=== PATIENT | female | born 1970 | race Asian ===

== ENCOUNTER 2023-02-04 10:13 | Inpatient (IN) | payer BC ==
[~2023-02-04] VITALS: Ht 160 cm; Wt 65.8 kg
[2023-02-04 10:28] VITALS: BP_SYST 136; PULSE 121; RESP 19; TEMP 97.5; O2SAT 99
[2023-02-04] MEDS ORDERED: NS 1000 ML IV.SOLN IV ONE (10:30)
[2023-02-04 10:56] LABS: BASOPHILS # (AUTO) 0.1 K/uL (0.0-0.2); BASOPHILS % (AUTO) 0.4 % (0.0-2.0); HEMATOCRIT 42.2 % (36-48); HEMOGLOBIN 13.9 g/dL (12.0-16.0); LYMPHOCYTES # (AUTO) 0.7 K/uL (1.0-5.5); LYMPHOCYTES % (AUTO) 3.6 % (20.5-51.5); MEAN CORPUSCULAR HEMOGLOBIN 29 pg (27-31); MEAN CORPUSCULAR HGB CONC 33 % (32-36); MEAN CORPUSCULAR VOLUME 89 fL (79.0-98.0); MONOCYTES # (AUTO) 1.8 K/uL (0.0-1.0); MONOCYTES % (AUTO) 8.9 % (1.7-9.3); NEUTROPHILS # (AUTO) 17.9 K/uL (1.8-7.7); NEUTROPHILS % (AUTO) 87.1 % (40.0-70.0); PLATELET COUNT (AUTO) 305 K/uL (130-430); RED BLOOD CELL COUNT(AUTO) 4.72 MIL/uL (4.2-6.2); WHITE BLOOD COUNT (AUTO) 20.5 K/uL (4.8-10.8)
[2023-02-04 11:07] LABS: CREATININE 1.07 mg/dL (0.55-1.30); POTASSIUM 3.7 mmol/L (3.5-5.1)
[2023-02-04 11:13] LABS: ALBUMIN 2.7 g/dL (3.4-4.8); TOTAL BILIRUBIN 0.5 mg/dL (0.0-1.0); TOTAL PROTEIN, SERUM 7.9 g/dL (6.4-8.3)
[2023-02-04 11:25] LABS: INFLUENZA TYPE A Negative (NEGATIVE); INFLUENZA TYPE B NEGATIVE (NEGATIVE)
[2023-02-04 13:36] LABS: BILIRUBIN,URINE 2+ (NEGATIVE); BLOOD, URINE 3+ (NEGATIVE); CLARITY/URINE SL CLOUDY (CLEAR); COLOR,URINE YELLOW (YELLOW); GLUCOSE,URINE NEGATIVE (NEGATIVE); KETONES,URINE 2+ (NEGATIVE); LEUKOCYTE ESTERASE ,URINE TRACE (NEGATIVE); NITRITE, URINE NEGATIVE (NEGATIVE); PROTEIN URINE 3+ (NEGATIVE)
[2023-02-04 13:56] LABS: BACTERIA,URINE FEW /HPF (None Seen); MUCUS,URINE 2+ /LPF (None Seen); RBC,URINE 50-80 /HPF (0-3)
[2023-02-04] MEDS ORDERED: MORPHINE 2 MG/ML INJ. SYRINGE IVP ONE (15:00)
[2023-02-04] MEDS ORDERED: PIPERACILLIN/TAZO 4.5 GM in NS 100 ML IV ONE (15:15)
[2023-02-04] MEDS ORDERED: ACETAMINOPHEN 120 MG SUPP.RECT RC ONE (16:58)
[2023-02-04] MEDS ORDERED: ACETAMINOPHEN 650 MG SUPP.RECT RC ONE (17:15)
[2023-02-04] MEDS ORDERED: BUDE6HFA INH (18:09)
[2023-02-04] MEDS ORDERED: ALBMDI INH (18:09)
[2023-02-04] MEDS ORDERED: MONT-47 PO (18:09)
[2023-02-04] MEDS ORDERED: MORPHINE 4 MG INJ. 4 MG/ML VIAL ONE (18:28)
[2023-02-04] MEDS ORDERED: ONDANSETRON HCL 4 MG/2 ML VIAL ONE (18:29)
[2023-02-04] MEDS ORDERED: MORPHINE 4 MG INJ. 4 MG/ML VIAL IVP PRN (18:30)
[2023-02-04] MEDS ORDERED: ONDANSETRON HCL 4 MG/2 ML VIAL IVP PRN (18:30)
[2023-02-04] MEDS ORDERED: LR 1,000 ML IV ONE (18:30)
[2023-02-04] MEDS ORDERED: ALBUTEROL MDI INHALATION 8 GM INH INH SCH (20:00)
[2023-02-04] MEDS ORDERED: MORPHINE 2 MG/ML INJ. SYRINGE IVP PRN (20:00)
[2023-02-04] MEDS ORDERED: ACETAMINOPHEN 650 MG SUPP.RECT RC PRN (20:00)
[2023-02-04] MEDS ORDERED: NALOXONE HCL 0.4 MG/ML AMP (NARCAN) IVP PRN (20:00)
[2023-02-04] MEDS ORDERED: BUDESONIDE/FORMOTEROL 160-4.5 mCg, 6 GM INHALER INH SCH (21:00)
[2023-02-04 21:04] VITALS: BP_SYST 107; PULSE 93; RESP 18; TEMP 98.7; O2SAT 98
[2023-02-04 21:35] VITALS: BP_SYST 107; PULSE 90; RESP 14; TEMP 98.9; O2SAT 95
[2023-02-04] MEDS: FAMOTIDINE PF 20 MG/2 ML VIAL IVP SCH (23:02)
[2023-02-04] MEDS: metroNIDAZOLE 500 mg/NS 100 ML IV SCH (23:02)
[2023-02-05] VITALS (11 sets, daily range): BP systolic 102–126; PULSE 74–92; RESP 14–20; TEMP 98.2–100.2; O2SAT 95–98
[2023-02-05] MEDS ORDERED: PIPERACILLIN/TAZO 3.375/DEX-IS 50 ML IV SCH
[2023-02-05] MEDS: D5LR 1,000 ML IV SCH ×3 (05:20→14:49)
[2023-02-05] MEDS: metroNIDAZOLE 500 mg/NS 100 ML IV SCH ×2 (05:21→13:41)
[2023-02-05] MEDS ORDERED: ALBUTEROL SULFATE 0.083% 2.5 MG/3 ML VIAL.NEB INH PRN (06:30)
[2023-02-05 06:37] LABS: HEMOGLOBIN 11.6 g/dL (12.0-16.0); MEAN CORPUSCULAR HEMOGLOBIN 30 pg (27-31); MEAN CORPUSCULAR HGB CONC 33 % (32-36); MEAN CORPUSCULAR VOLUME 89 fL (79.0-98.0); PLATELET COUNT (AUTO) 284 K/uL (130-430); RED BLOOD CELL COUNT(AUTO) 3.91 MIL/uL (4.2-6.2); RED CELL DISTRIBUTION WIDTH 13.1 % (9.0-15.0); WHITE BLOOD COUNT (AUTO) 13.6 K/uL (4.8-10.8)
[2023-02-05] MEDS: PIPERACILLIN/TAZO 4.5GM/DEX-IS 100 ML IV SCH ×3 (06:44→22:30)
[2023-02-05] MEDS: BUDESONIDE 0.5 MG/2 ML AMPUL.NEB INH SCH ×2 (07:00→19:00)
[2023-02-05] MEDS: ALBUTEROL SULFATE 0.083% 2.5 MG/3 ML VIAL.NEB INH SCH ×3 (07:00→19:00)
[2023-02-05 07:10] LABS: ALBUMIN 1.8 g/dL (3.4-4.8); CREATININE 0.79 mg/dL (0.55-1.30); POTASSIUM 3.5 mmol/L (3.5-5.1); TOTAL BILIRUBIN 0.3 mg/dL (0.0-1.0)
[2023-02-05 07:14] LABS: CALCIUM 6.9 mg/dL (8.4-11.0)
[2023-02-05] MEDS ORDERED: GASTROGRAFIN 120 ML ONE ×2 (07:39→08:05)
[2023-02-05 08:17] LABS: INR 1.1 (0.8-1.2); PROTHROMBIN TIME 11.1 SECS (9.5-12.5)
[2023-02-05] MEDS: MONTELUKAST 10 MG TABLET PO SCH (09:00)
[2023-02-05] MEDS: FAMOTIDINE PF 20 MG/2 ML VIAL IVP SCH ×2 (09:26→21:18)
[2023-02-05] MEDS ORDERED: CALCIUM GLUC 1 GM/100ML-NACL 100 ML IV ONE (13:30)
[2023-02-05] MEDS ORDERED: GENTAMICIN IN NACL, ISO-OSM 100 ML IV ONE (13:30)
[2023-02-05] MEDS ORDERED: ACETAMINOPHEN 325 MG TABLET PO PRN (14:15)
[2023-02-05] MEDS: ACETAMINOPHEN 325 MG TABLET PO PRN ×2 (17:00→21:24)
[2023-02-06] VITALS: BP_SYST 100; PULSE 72; RESP 18; TEMP 98.9; O2SAT 96
[2023-02-06] MEDS: metroNIDAZOLE 500 mg/NS 100 ML IV SCH ×4 (00:03→23:35)
[2023-02-06] MEDS: ACETAMINOPHEN 325 MG TABLET PO PRN ×2 (03:17→18:10)
[2023-02-06] MEDS: PIPERACILLIN/TAZO 4.5GM/DEX-IS 100 ML IV SCH (06:22)
[2023-02-06] MEDS: BUDESONIDE 0.5 MG/2 ML AMPUL.NEB INH SCH ×2 (07:00→19:00)
[2023-02-06] MEDS: ALBUTEROL SULFATE 0.083% 2.5 MG/3 ML VIAL.NEB INH SCH ×2 (07:00→19:00)
[2023-02-06 07:50] VITALS: O2SAT 98
[2023-02-06 08:00] VITALS: BP_SYST 113; PULSE 73; RESP 17; TEMP 98.9; O2SAT 98
[2023-02-06] MEDS: FAMOTIDINE PF 20 MG/2 ML VIAL IVP SCH ×2 (09:56→22:03)
[2023-02-06] MEDS: MONTELUKAST 10 MG TABLET PO SCH (09:56)
[2023-02-06] MEDS: D5LR 1,000 ML IV SCH ×3 (11:45→21:45)
[2023-02-06 12:00] VITALS: BP_SYST 111; PULSE 89; RESP 18; TEMP 97.5; O2SAT 99
[2023-02-06 15:00] LABS: BASOPHILS % (AUTO) 0.4 % (0.0-2.0); EOSINOPHILS # (AUTO) 0.1 K/uL (0.0-0.4); EOSINOPHILS % (AUTO) 0.6 % (0.0-4.0); HEMATOCRIT 36.3 % (36-48); HEMOGLOBIN 11.9 g/dL (12.0-16.0); LYMPHOCYTES # (AUTO) 1.5 K/uL (1.0-5.5); LYMPHOCYTES % (AUTO) 11.1 % (20.5-51.5); MEAN CORPUSCULAR HEMOGLOBIN 29 pg (27-31); MEAN CORPUSCULAR HGB CONC 33 % (32-36); MEAN CORPUSCULAR VOLUME 89 fL (79.0-98.0); MONOCYTES # (AUTO) 1.1 K/uL (0.0-1.0); MONOCYTES % (AUTO) 8.3 % (1.7-9.3); NEUTROPHILS # (AUTO) 10.4 K/uL (1.8-7.7); NEUTROPHILS % (AUTO) 79.6 % (40.0-70.0); PLATELET COUNT (AUTO) 382 K/uL (130-430); RED BLOOD CELL COUNT(AUTO) 4.08 MIL/uL (4.2-6.2); RED CELL DISTRIBUTION WIDTH 13.4 % (9.0-15.0); WHITE BLOOD COUNT (AUTO) 13.1 K/uL (4.8-10.8)
[2023-02-06 15:19] LABS: CALCIUM 7.6 mg/dL (8.4-11.0); CREATININE 0.84 mg/dL (0.55-1.30); TOTAL BILIRUBIN 0.3 mg/dL (0.0-1.0); TOTAL PROTEIN, SERUM 6.3 g/dL (6.4-8.3)
[2023-02-06 15:22] LABS: POTASSIUM 2.9 mmol/L (3.5-5.1)
[2023-02-06 17:49] VITALS: BP_SYST 128; PULSE 82; RESP 17; TEMP 97.7; O2SAT 97
[2023-02-06] MEDS ORDERED: POTASSIUM CHLORIDE 20 MEQ TAB.PRT.SR PO ONE (18:00)
[2023-02-06] MEDS ORDERED: CHOLECALCIFEROL (VITAMIN D3) 2,000 UNIT TABLET PO ONE (18:15)
[2023-02-06 20:00] VITALS: BP_SYST 113; PULSE 75; RESP 18; TEMP 98.8; O2SAT 97
[2023-02-06] MEDS: POTASSIUM CHLORIDE 20 MEQ TAB.PRT.SR PO SCH (21:21)
[2023-02-06] MEDS: LACTOBACILLUS RHAMNOSUS GG 1 CAP CAPSULE PO SCH (21:21)
[2023-02-06] MEDS: CIPROFLOXACIN LACT 400 MG/D5W 200 ML IV SCH (22:03)
[2023-02-07] VITALS (7 sets, daily range): BP systolic 108–122; PULSE 64–79; RESP 17–18; TEMP 97.9–98.8; O2SAT 97–100
[2023-02-07] MEDS: ACETAMINOPHEN 325 MG TABLET PO PRN ×2 (03:44→19:04)
[2023-02-07] MEDS: metroNIDAZOLE 500 mg/NS 100 ML IV SCH ×3 (06:54→23:41)
[2023-02-07] MEDS: FAMOTIDINE PF 20 MG/2 ML VIAL IVP SCH ×2 (09:02→21:44)
[2023-02-07] MEDS: POTASSIUM CHLORIDE 20 MEQ TAB.PRT.SR PO SCH ×3 (09:02→20:55)
[2023-02-07] MEDS: LACTOBACILLUS RHAMNOSUS GG 1 CAP CAPSULE PO SCH ×2 (09:02→20:54)
[2023-02-07] MEDS: MONTELUKAST 10 MG TABLET PO SCH (09:02)
[2023-02-07] MEDS: CHOLECALCIFEROL (VITAMIN D3) 2,000 UNIT TABLET PO SCH (09:03)
[2023-02-07] MEDS: CIPROFLOXACIN LACT 400 MG/D5W 200 ML IV SCH ×2 (09:03→21:44)
[2023-02-07 11:21] LABS: CALCIUM 9.1 mg/dL (8.4-11.0); CREATININE 0.73 mg/dL (0.55-1.30); POTASSIUM 3.4 mmol/L (3.5-5.1); TOTAL BILIRUBIN 0.3 mg/dL (0.0-1.0); TOTAL PROTEIN, SERUM 6.3 g/dL (6.4-8.3)
[2023-02-07] MEDS ORDERED: CIPR500T5 PO (17:15)
[2023-02-07] MEDS ORDERED: METR-154 PO (17:18)
[2023-02-07] MEDS ORDERED: LACT1CAP89 PO (17:23)
[2023-02-07] MEDS ORDERED: VITD2000 PO (17:44)
[2023-02-07] MEDS: D5LR 1,000 ML IV SCH (18:24)
[2023-02-07] MEDS: BUDESONIDE 0.5 MG/2 ML AMPUL.NEB INH SCH (19:00)
[2023-02-07] MEDS: ALBUTEROL SULFATE 0.083% 2.5 MG/3 ML VIAL.NEB INH SCH (19:00)
[2023-02-08] VITALS: BP_SYST 111; PULSE 74; RESP 18; TEMP 97.8; O2SAT 98
[2023-02-08] MEDS: ALBUTEROL SULFATE 0.083% 2.5 MG/3 ML VIAL.NEB INH SCH ×3 (01:00→13:00)
[2023-02-08 06:13] LABS: BASOPHILS # (AUTO) 0.1 K/uL (0.0-0.2); BASOPHILS % (AUTO) 0.6 % (0.0-2.0); EOSINOPHILS # (AUTO) 0.2 K/uL (0.0-0.4); HEMATOCRIT 37.5 % (36-48); HEMOGLOBIN 12.2 g/dL (12.0-16.0); LYMPHOCYTES # (AUTO) 1.4 K/uL (1.0-5.5); LYMPHOCYTES % (AUTO) 16.8 % (20.5-51.5); MEAN CORPUSCULAR HEMOGLOBIN 29 pg (27-31); MEAN CORPUSCULAR HGB CONC 33 % (32-36); MEAN CORPUSCULAR VOLUME 89 fL (79.0-98.0); MONOCYTES # (AUTO) 0.9 K/uL (0.0-1.0); MONOCYTES % (AUTO) 10.4 % (1.7-9.3); NEUTROPHILS % (AUTO) 70.2 % (40.0-70.0); PLATELET COUNT (AUTO) 486 K/uL (130-430); RED CELL DISTRIBUTION WIDTH 13.7 % (9.0-15.0); WHITE BLOOD COUNT (AUTO) 8.5 K/uL (4.8-10.8)
[2023-02-08] MEDS: metroNIDAZOLE 500 mg/NS 100 ML IV SCH ×2 (06:36→13:56)
[2023-02-08] MEDS: ACETAMINOPHEN 325 MG TABLET PO PRN (06:44)
[2023-02-08 06:46] LABS: ALBUMIN 1.9 g/dL (3.4-4.8); CALCIUM 8.8 mg/dL (8.4-11.0); CREATININE 0.67 mg/dL (0.55-1.30); POTASSIUM 3.7 mmol/L (3.5-5.1); TOTAL BILIRUBIN 0.3 mg/dL (0.0-1.0)
[2023-02-08] MEDS: BUDESONIDE 0.5 MG/2 ML AMPUL.NEB INH SCH (07:00)
[2023-02-08 08:00] VITALS: BP_SYST 116; PULSE 67; RESP 19; TEMP 97.7; O2SAT 99
[2023-02-08] MEDS: LACTOBACILLUS RHAMNOSUS GG 1 CAP CAPSULE PO SCH (10:51)
[2023-02-08] MEDS: CHOLECALCIFEROL (VITAMIN D3) 2,000 UNIT TABLET PO SCH (10:52)
[2023-02-08] MEDS: POTASSIUM CHLORIDE 20 MEQ TAB.PRT.SR PO SCH ×2 (10:52→14:30)
[2023-02-08] MEDS: MONTELUKAST 10 MG TABLET PO SCH (10:52)
[2023-02-08] MEDS: FAMOTIDINE PF 20 MG/2 ML VIAL IVP SCH (11:21)
[2023-02-08] MEDS: CIPROFLOXACIN LACT 400 MG/D5W 200 ML IV SCH (11:22)
[2023-02-08 11:45] VITALS: BP_SYST 116; PULSE 67; O2SAT 99
[2023-02-08 12:00] VITALS: BP_SYST 126; RESP 19; TEMP 97.7; O2SAT 99
[2023-02-08 15:04] VITALS: BP_SYST 126; PULSE 68; RESP 19; TEMP 97.7; O2SAT 99
== END 2023-02-08 16:10 | disposition home or self-care (01) | DRG 871 ==
LOC: SED 10:13 → STU 17:33 → SMU 02-05 19:17
PROVIDERS: ADMIT Internal Medicine; ATTEND Internal Medicine
PROC: 0D9670Z Drainage of Stomach with Drainage Device, Via Natural or Artificial Opening (ICD-10-PCS; principal; 2023-02-05)
DX: A41.9 Sepsis, unspecified organism (principal); E43 Unspecified severe protein-calorie malnutrition; J18.9 Pneumonia, unspecified organism; K65.1 Peritoneal abscess; K56.600 Partial intestinal obstruction, unspecified as to cause; N39.0 Urinary tract infection, site not specified; K56.7 Ileus, unspecified; Z20.822 Contact with and (suspected) exposure to COVID-19; J45.909 Unspecified asthma, uncomplicated; K76.0 Fatty (change of) liver, not elsewhere classified; M47.816 Spondylosis without myelopathy or radiculopathy, lumbar region; E83.51 Hypocalcemia; E87.6 Hypokalemia; K57.90 Diverticulosis of intestine, part unspecified, without perforation or abscess without bleeding; K44.9 Diaphragmatic hernia without obstruction or gangrene; Z91.018 Allergy to other foods; Z88.0 Allergy status to penicillin; Z91.013 Allergy to seafood; Z79.899 Other long term (current) drug therapy; Z68.25 Body mass index [BMI] 25.0-25.9, adult
CPT/HCPCS: 36415; 71045; 74250-TC; 76376; 80053; 81000; 83605; 83690; 83735; 84702; 85025; 85610-TC; 85730-TC; 87040; 87045-TC; 87046; 87086; 87449; 87491; 89055; 94760; 96361; 96365; 96375; 99285; G0378; J0744; J1580; J1956; J2270; J2405; J2543; J3490; J7626; Q9963; Q9967

== ENCOUNTER 2023-11-23 16:17 | Emergency (ER) | payer BC ==
[~2023-11-23] VITALS: Ht 160 cm; Wt 56.7 kg
[~2023-11-23 16:17] MED LIST: ALBMDI INH; BUDE6HFA INH; CIPR500T5 PO; LACT1CAP89 PO; METR-154 PO; MONT-47 PO; VITD2000 PO
[2023-11-23 16:26] VITALS: BP_SYST 157; PULSE 85; RESP 18; TEMP 98.3; O2SAT 98
[2023-11-23 19:08] VITALS: BP_SYST 157; PULSE 85; RESP 18; TEMP 98.3; O2SAT 98
== END 2023-11-23 19:08 | disposition home or self-care (01) ==
LOC: SED 16:17
DX: S76.311A Strain of muscle, fascia and tendon of the posterior muscle group at thigh level, right thigh, initial encounter (principal); J45.909 Unspecified asthma, uncomplicated; Z91.040 Latex allergy status; Z91.041 Radiographic dye allergy status; Z91.018 Allergy to other foods; Z91.011 Allergy to milk products; Z79.899 Other long term (current) drug therapy; Z79.2 Long term (current) use of antibiotics; X58.XXXA Exposure to other specified factors, initial encounter; Y93.89 Activity, other specified; Y92.89 Other specified places as the place of occurrence of the external cause; Y99.8 Other external cause status
CPT/HCPCS: 93971; 99284